=== PATIENT | female | born 1990 | race Caucasian/White ===

== ENCOUNTER 2020-03-13 09:50 | Inpatient (IN) | payer OTHER ==
[2020-03-15 20:46] VITALS: BMI 26.8
[2020-03-15] MEDS ORDERED: Ondansetron PF 4 MG/2 ML Vial IVP PRN (20:50)
[2020-03-15] MEDS ORDERED: Butorphanol Tartrate 1 MG/ML VIAL SLOW IVP PRN (20:50)
[2020-03-15] MEDS ORDERED: Promethazine HCl 25 MG/ML VIAL IM PRN (20:50)
[2020-03-15] MEDS ORDERED: NS / Oxytocin 40 units/1000ml 1,000 ML IV PRN (20:50)
[2020-03-15] MEDS ORDERED: NS w/ Oxytocin 10 units 500 ML IV SCH (20:50)
[2020-03-15] MEDS ORDERED: HYDROcodone/Acetaminophen 5/325 mg Tablet PO PRN ×2 (20:50)
[2020-03-15] MEDS ORDERED: Ibuprofen 800 MG TAB PO PRN (20:50)
[2020-03-15] MEDS ORDERED: Misoprostol 100 MCG TAB VAG SCH ×2 (20:50)
[2020-03-15] MEDS ORDERED: Lidocaine 1% (PF) 30 ML VIAL SC PRN (20:50)
[2020-03-15] MEDS ORDERED: hydrALAZINE 20 MG/ML VIAL SLOW IVP PRN (20:50)
[2020-03-15 22:09] LABS: Hemoglobin 9.4 g/dL (12.0-16.0); Mean Corpuscular HGB CONC 33.9 g/dL (32.0-36.0); Mean Corpuscular Hemoglobin 28.1 pg (27.0-31.0); Mean Corpuscular Volume 82.9 fL (78.0-98.0); Mean Platelet Volume 6.6 fL (7.4-10.4); Platelet Count 250 thou/uL (130-400); RBC Distribution Width 13.8 % (11.5-14.5); Red Blood Cell (RBC) Count 3.34 mill/uL (4.20-5.40); White Blood Cell (WBC) Count 7.6 thou/uL (4.8-10.8)
[2020-03-15 22:36] LABS: HBSAg Index 0.38 S/CO (0-0.99); Hep B Surf Ag Non-Reactive S/CO (NonReactive); Syphilis Antibody Nonreactive (Nonreactive); Syphilis Antibody Index 0.07 S/CO (<1.00 Non-Reactive)
[2020-03-16] MEDS ORDERED: Bicitra 30 ML UDCUP PO SCH (08:15)
[2020-03-16] MEDS ORDERED: CEFAZOLIN 2 GM in Premix Bag 1 BAG IVPB SCH (08:15)
[2020-03-16] MEDS ORDERED: Lidocaine 2% MPF 10 ML AMP (For Epidural Use) ONE (08:52)
[2020-03-16] MEDS ORDERED: Fentanyl 100 MCG/2 ML VIAL ONE (08:52)
[2020-03-16] MEDS ORDERED: EPHEDRINE 25 MG/5 ML SYRINGE ONE ×2 (08:53→08:54)
[2020-03-16] MEDS ORDERED: PHENYLEPHRINE-NS 100 MCG/ML 10 ML SYRINGE ONE (08:53)
[2020-03-16] MEDS ORDERED: Oxytocin 10 UNITS/ML VIAL ONE ×2 (08:53→09:55)
[2020-03-16] MEDS ORDERED: Ondansetron PF 4 MG/2 ML Vial ONE ×2 (08:53→10:00)
[2020-03-16] MEDS ORDERED: MORPHINE 5 MG/10 ML PF VIAL ONE (09:04)
[2020-03-16] MEDS ORDERED: Ketorolac Tromethamine 30 MG/ML VIAL ONE (09:42)
[2020-03-16] MEDS ORDERED: Ondansetron HCl/PF 4 MG/2 ML Vial IVP PRN (10:17)
[2020-03-16] MEDS ORDERED: Meperidine HCl/PF 25 MG/ML VIAL SLOW IVP PRN (10:17)
[2020-03-16] MEDS ORDERED: HYDROmorphone 2 MG/ML VIAL SLOW IVP PRN (10:17)
[2020-03-16] MEDS ORDERED: L&D-Morphine 4 MG/ML VIAL SLOW IVP PRN (10:17)
--- NOTE | 2020-03-16 10:41 | OP ---
DATE OF PROCEDURE: 03/16/2020 PREOPERATIVE DIAGNOSES: 1. A 29-year-old G1 at 40 weeks and 3 days. 2. Herpes simplex virus prodromal symptoms. POSTOPERATIVE DIAGNOSIS: Status post section. PROCEDURE PERFORMED: Primary low-transverse section. COOK FISHING VESSEL: Dr. Bernard, [employer]. COMPLICATIONS: None. ESTIMATED BLOOD LOSS: 700 mL. QUANTITATIVE BLOOD LOSS: Pending at the time of dictation. ANESTHESIA: Spinal. FINDINGS: 1. Vigorous male , Apgars 9 and 9, weight 8 pounds 15 ounces, to nursery. 2. Low-transverse hysterotomy without extension. 3. Normal-appearing uterus, tubes, and ovaries bilaterally. 4. Surgical site hemostatic. 5. Placenta delivered with three-vessel cord. Clear amniotic fluid noted. DESCRIPTION OF PROCEDURE: The patient was taken back to the OR with IV fluids running. Once she was in the OR, spinal anesthesia was obtained and the patient was placed in dorsal supine position with a left lateral tilt. A 2 g of Ancef was administered. A Hernandez catheter was placed using sterile technique. SCDs were applied to the lower extremities and turned on. The patient was then prepped and draped in normal fashion for section. Surgeons were gowned and gloved. Anesthesia was tested and found to be adequate. A Pfannenstiel skin incision was made with a scalpel. The skin incision was carried down through the subcutaneous layer to the fascia. Once the fascia was reached, it was extended superolaterally using curved Davis scissors. Carolina clamps were placed at the superior border of the fascia, which was sharply and bluntly dissected off the rectus abdominis muscles in both caudad and cephalad directions. The rectus muscles and peritoneum were bluntly entered and stretched laterally. An Zohaib O retractor was placed into the peritoneal cavity for retraction, visualization, and protection of the wound. A low-transverse hysterotomy was made with a scalpel. The hysterotomy was bluntly entered and stretched using the Nettles maneuver. The was delivered after amniotomy was performed through the hysterotomy without difficulty. The nose and mouth were suctioned. The cord was doubly clamped and cut. The infant was handed off to special care nurse in attendance. Cord blood was collected. The placenta was delivered. Uterus was exteriorized, massaged to firm and cleared of clot and debris. The hysterotomy was inspected with no extension noted. The hysterotomy was closed using a running lock stitch of Monocryl suture. An additional [id number] suture was placed in the right corner for a small amount of bleeding which was hemostatic after the suture was placed. After the hysterotomy was closed and noted to be hemostatic, it was irrigated and suction dried. It was then inspected again with no areas of bleeding noted. The Zohaib O retractor was removed from the abdominal cavity. The rectus muscle and fascia were inspected with no bleeding noted. The rectus fascia was reapproximated from each corner to the midline with PDS suture in a running fashion. After the fascia was closed, the subcutaneous tissue was irrigated and dry. No areas of bleeding were noted. Subcutaneous layer was reapproximated with plain gut suture and the skin was closed with 4-0 Monocryl. The uterine fundus was noted to be firm. The patient tolerated the procedure well. Job ID: [id number]
[2020-03-16] MEDS ORDERED: Ondansetron PF 4 MG/2 ML Vial IVP PRN ×2 (11:17→15:27)
[2020-03-16] MEDS ORDERED: Simethicone Chewable 80 MG TAB PO PRN (11:17)
[2020-03-16] MEDS ORDERED: HYDROcodone/Acetaminophen 5/325 mg Tablet PO PRN ×2 (11:17)
[2020-03-16] MEDS ORDERED: diphenhydrAMINE 25 MG CAP PO PRN (11:17)
[2020-03-16] MEDS ORDERED: hydrALAZINE 20 MG/ML VIAL SLOW IVP PRN (11:17)
[2020-03-16] MEDS ORDERED: Lanolin Ointment 7 GM TUBE TOP PRN (11:17)
[2020-03-16] MEDS ORDERED: Adacel (T-DAP) 0.5 ML SYRINGE IM ONE (11:17)
[2020-03-16] MEDS ORDERED: Acetaminophen 325 MG TAB PO PRN (11:17)
[2020-03-16] MEDS ORDERED: Ferrous Sulfate 325 MG TAB PO SCH (11:30)
[2020-03-16] MEDS ORDERED: Prenatal Vitamin 1 TAB PO SCH (11:30)
[2020-03-16] MEDS ORDERED: Docusate Calcium (SURFAK) 240 MG CAP PO SCH (11:30)
[2020-03-16] MEDS ORDERED: Ibuprofen 800 MG TAB PO SCH (14:00)
[2020-03-16] MEDS ORDERED: Promethazine HCl 25 MG/ML VIAL IM PRN (15:27)
[2020-03-16] MEDS ORDERED: Naloxone HCl 0.4 mg/ml Vial IV PRN (15:27)
[2020-03-16] MEDS ORDERED: Promethazine HCl 25 MG SUPP PR PRN (15:27)
[2020-03-16] MEDS ORDERED: Naloxone HCl 0.4 mg/ml Vial IVP PRN ×2 (15:27)
[2020-03-16] MEDS ORDERED: diphenhydrAMINE 50 MG/ML VIAL IVP PRN (15:27)
[2020-03-16] MEDS ORDERED: Communication Order-Pharmacy FS SCH (15:30)
[2020-03-16] MEDS: Ketorolac Tromethamine 30 MG/ML VIAL IVP PRN (16:46)
[2020-03-16] MEDS: Ferrous Sulfate 325 MG TAB PO SCH (16:56)
[2020-03-16] MEDS: Docusate Calcium (SURFAK) 240 MG CAP PO SCH (21:17)
[2020-03-17] MEDS: Ketorolac Tromethamine 30 MG/ML VIAL IVP PRN (00:16)
[2020-03-17 06:11] LABS: Hemoglobin 8.7 g/dL (12.0-16.0); Mean Corpuscular HGB CONC 32.5 g/dL (32.0-36.0); Mean Corpuscular Hemoglobin 27.2 pg (27.0-31.0); Mean Corpuscular Volume 83.6 fL (78.0-98.0); Mean Platelet Volume 6.4 fL (7.4-10.4); Platelet Count 211 thou/uL (130-400); RBC Distribution Width 13.7 % (11.5-14.5); Red Blood Cell (RBC) Count 3.18 mill/uL (4.20-5.40)
[2020-03-17] MEDS: Ibuprofen 800 MG TAB PO SCH ×3 (06:13→21:21)
[2020-03-17] MEDS: HYDROcodone/Acetaminophen 5/325 mg Tablet PO PRN ×4 (08:13→22:46)
[2020-03-17] MEDS: Ferrous Sulfate 325 MG TAB PO SCH ×2 (08:14→17:33)
[2020-03-17] MEDS: Docusate Calcium (SURFAK) 240 MG CAP PO SCH ×2 (08:14→21:23)
[2020-03-17] MEDS: Prenatal Vitamin 1 TAB PO SCH (08:15)
--- NOTE | 2020-03-17 10:23 | PDOC.PP ---
Post Progress Note Post Day #: 1 Subjective: doing well, sore, pain controlled w po meds, ambulating, trouble w latch PO intake tolerated: yes Flatus: yes Ambulation: yes Vital Signs (12 hours) Temp Pulse Resp BP Pulse Ox 03/17/20 07:49 98.5 F 71 20 110/64 99 03/17/20 04:59 97.9 F 63 20 111/55 L 98 03/17/20 00:20 98.1 F 65 16 119/64 98 Weight Weight 187 lb - Physical Examination General: NAD Respiratory: non-labored breathing Abdominal: no distention Skin: CS incision dry & intact Psychiatric: A&Ox3, normal affect Result Diagrams: 03/17/20 06:01 Additional Labs: Post Labs Blood Type O POSITIVE 03/15/20 22:45 Hep Bs Antigen Non-Reactive S/CO (NonReactive) 03/15/20 21:14 (1) Anemia in preg-unspec Code(s): O99.019 - ANEMIA COMPLICATING , UNSPECIFIED TRIMESTER Status : Acute (2) delivery delivered Code(s): O82 - ENCOUNTER FOR DELIVERY WITHOUT INDICATION Status: Acute (3) 40 weeks gestation of Code(s): Z3A.40 - 40 WEEKS GESTATION OF Status: Acute - Assessment/Plan POD1 sp 1CS for HSV prodrome at 40 weeks/time of scheduled IOL. Doing well, plan for consultation today. Possible DC tomorrow vs. .
[2020-03-17] MEDS ORDERED: Ibuprofen 800 MG TAB PO SCH (22:00)
[2020-03-18] MEDS: HYDROcodone/Acetaminophen 5/325 mg Tablet PO PRN ×3 (03:31→13:13)
[2020-03-18] MEDS: Ibuprofen 800 MG TAB PO SCH ×2 (06:32→13:52)
--- NOTE | 2020-03-18 07:34 | PDOC.PP ---
Post Progress Note Post Day #: 2 Subjective: doing well, pain controlled w oral meds, baby w good latch-nursed for 45 mins this AM PO intake tolerated: yes Flatus: yes Ambulation: yes Vital Signs (12 hours) Temp Pulse Resp BP Pulse Ox 03/18/20 03:29 98.5 F 81 14 111/67 98 03/18/20 00:16 98.2 F 73 18 121/60 98 Weight Weight 187 lb - Physical Examination General: NAD Respiratory: non-labored breathing Abdominal: no distention Skin: CS incision dry & intact Neurological: no gross focal deficits Psychiatric: A&Ox3, normal affect Result Diagrams: 03/17/20 06:01 Additional Labs: Post Labs Blood Type O POSITIVE 03/15/20 22:45 Hep Bs Antigen Non-Reactive S/CO (NonReactive) 03/15/20 21:14 (1) Anemia in preg-unspec Code(s): O99.019 - ANEMIA COMPLICATING , UNSPECIFIED TRIMESTER Status : Acute (2) delivery delivered Code(s): O82 - ENCOUNTER FOR DELIVERY WITHOUT INDICATION Status: Acute (3) 40 weeks gestation of Code(s): Z3A.40 - 40 WEEKS GESTATION OF Status: Acute - Assessment/Plan POD2 doing well, no concerns, requests DC later today. Post op pain med use reviewed and iron PP for anemia.
[2020-03-18] MEDS: Ferrous Sulfate 325 MG TAB PO SCH (08:36)
[2020-03-18] MEDS: Prenatal Vitamin 1 TAB PO SCH (08:36)
[2020-03-18] MEDS: Docusate Calcium (SURFAK) 240 MG CAP PO SCH (08:36)
[2020-03-18 11:32] VITALS: BP 117/62; TEMP 98.5
--- NOTE | 2020-03-19 08:36 | PQF ---
Rebecca Molina JAMIE DO [id number] CLINICAL DOCUMENTATION CLARIFICATION FORM: POST DISCHARGE Addendum to original discharge summary date: ____ Late entry note date: __ DATE:03/19/2020 ATTN: Thiago Berg Please exercise your independent, professional judgment in responding to the clarification form. Clinical indicators are provided on the bottom of this form for your review Please check appropriate box(s): [ ] Acute blood loss anemia [ ] Post-op anemia related to acute blood loss [ ] Chronic Anemia related to [ ] Other diagnosis For continuity of documentation, please document condition throughout progress notes and discharge summary. Thank You. CLINICAL INDICATORS - SIGNS / SYMPTOMS / LABS Laboratory 03/15 RBC 3.34, Hgb 9.4, Hct 27.7 Laboratory 03/17 RBC 3.18, hgb 8.7, hct 26.6 Vital sign 03/16 BP 103/58, Pulse 71, Resp 18 Operative report p1 03/16 Estimated blood loss 700ml PN p1 03/17 Anemia in RISK FACTORS Operative report p1 03/16 40 weeks of gestation Operative report p1 03/16 s/p Low CS Operative report p1 03/16 HSV TREATMENTS: MAR 03/16 Ferrous Sulfate 325 mg oral MAR 03/16 IVF NS 1L Hct/Hgb monitoring (This form is maintained as a part of the permanent medical record) 2014 [employer] All Rights Reserved [email or web address]
== END 2020-03-18 14:00 | disposition home or self-care (01) | DRG 788 ==
LOC: EDSTATUS 09:50 → L&D 03-15 19:57 → 3SE 03-16 11:48
PROVIDERS: ADMIT Obstetrics & Gynecology; ATTEND Obstetrics & Gynecology
PROC: 10D00Z1 Extraction of Products of Conception, Low, Open Approach (ICD-10-PCS; principal; 2020-03-16)
DX: O98.52 Other viral diseases complicating childbirth (principal); B00.9 Herpesviral infection, unspecified; Z3A.40 40 weeks gestation of pregnancy; Z37.0 Single live birth; O99.02 Anemia complicating childbirth; D64.9 Anemia, unspecified
CPT/HCPCS: 36415; 36416; 51702; 85027; 86780; 86850; 86900; 86901; 87340; J0690; J1885; J2001; J2274; J2405; J2590; J3010